=== PATIENT | female | born 1995 | race African-American/Black ===

== ENCOUNTER 2018-01-21 20:30 | Emergency (ER) | payer OTHER ==
[2018-01-21] MEDS: NAPROXEN 250 MG TAB PO (23:27)
[2018-01-21] MEDS: CYCLOBENZAPRINE 10 MG TAB PO (23:27)
== END 2018-01-21 23:32 | disposition home or self-care (01) ==
LOC: M ED 23:32
DX: M62.830 Muscle spasm of back (principal); E07.9 Disorder of thyroid, unspecified; F17.210 Nicotine dependence, cigarettes, uncomplicated
CPT/HCPCS: 72110

== ENCOUNTER 2018-03-07 12:01 | Emergency (ER) | payer OTHER ==
[~2018-03-07] VITALS: Ht 170.2 cm; Wt 61.4 kg
[~2018-03-07 12:01] MED LIST: CABE0.5T PO; CYCL10TA PO; NAPR-50 PO
[2018-03-07] MEDS ORDERED: IBUP-1022 PO (12:15)
--- NOTE | 2018-03-07 13:31 | REP ---
Chest x-ray: Two views. History: Pleuritic pain . Comparison study: No comparison study . Findings: The lungs are well inflated and free of infiltrate. The pleural angles are sharp. The heart size is normal. Pulmonary vasculature is not increased. No significant bony abnormality is seen. Impression: Negative chest x-ray. Electronically Signed by Percy Cordova MD 03/07/2018 01:23 P
[2018-03-07 13:45] VITALS: BP 124/66
== END 2018-03-07 14:00 | disposition home or self-care (01) ==
LOC: M ED 12:01
DX: R07.81 Pleurodynia (principal); M62.830 Muscle spasm of back